=== PATIENT | female | born 1990 | race Two or more races ===

== ENCOUNTER 2019-02-19 16:13 | Emergency (ER) | payer OTHER ==
[~2019-02-19] VITALS: Ht 162.6 cm; Wt 65.8 kg
--- NOTE | 2019-02-19 16:25 | NUR ---
PT BIB BOYFRIEND, C/O ABD PAIN SINCE THIS MORNING, CONSTIPATION, PT IS AAOX4, NOT IN RESPIRATORY DISTRESS, HOOKED TO MONITOR, KEPT RESTED AND COMFORTABLE, WILL CONTINUE TO MONITOR.
--- NOTE | 2019-02-19 16:30 | NUR ---
AT BEDSIDE FOR EVAL.
--- NOTE | 2019-02-19 16:40 | NUR ---
BOND CATH INSERTED, URINE SPECIMEN COLLECTED AND SENT TO LAB.
--- NOTE | 2019-02-19 16:44 | NUR ---
IV LINE ESTABLISHED, BLOOD DRAWNED AND SENT TO LAB.
[2019-02-19 16:49] LABS: MEAN CORPUSCULAR HGB CONC 35 g/dl (31.0-36.0)
[2019-02-19 16:50] LABS: APPEARANCE,URINE Clear (CLEAR); BILIRUBIN,URINE Negative (NEGATIVE); BLOOD, URINE Negative Ery/uL (NEGATIVE); COLOR,URINE Yellow (YELLOW); KETONES,URINE Negative (NEGATIVE); LEUKOCYTE ESTERASE ,URINE Negative (NEGATIVE); NITRITE, URINE Negative (NEGATIVE); PH,URINE 7.5 (5.0-8.0); PROTEIN,URINE Negative (NEGATIVE); UGLUCOSE Negative (NEGATIVE); UROBILINOGEN,URINE 0.2 EU/dL (0.2)
[2019-02-19] MEDS ORDERED: KETOROLAC TROMETHAMINE INJ 30 MG/ML VIAL ONE (16:53)
[2019-02-19] MEDS ORDERED: MAGNESIUM CITRATE 296 ML BOTTLE ONE (16:53)
[2019-02-19 16:55] LABS: CALCIUM, SERUM 8.8 mg/dL (8.5-10.1); CREATININE 0.9 mg/dL (0.6-1.3); POTASSIUM 3.6 mmol/L (3.5-5.1)
[2019-02-19 16:56] LABS: BASOPHILS % (AUTO) 0.3 % (0.0-2.0); EOSINOPHILS % (AUTO) 0.7 % (0.0-6.0); HEMATOCRIT 43 % (33-45); LYMPHOCYTES # (AUTO) 2.9 /CMM (0.8-4.8); LYMPHOCYTES % (AUTO) 41.1 % (20.0-44.0); MEAN CORPUSCULAR VOLUME 94 fL (82-100); MONOCYTES # (AUTO) 0.3 /CMM (0.1-1.30); MONOCYTES % (AUTO) 4.3 % (2.0-12.0); NEUTROPHILS # (AUTO) 3.7 /CMM (1.8-8.9); NEUTROPHILS % (AUTO) 53.6 % (43.0-81.0); PLATELET COUNT (AUTO) 340 /CMM (150-450); RED BLOOD CELL COUNT(AUTO) 4.55 MIL/uL (4.0-5.2)
--- NOTE | 2019-02-19 16:58 | NUR ---
PT WHEELED TO RADIOLOGY DEPT FOR XRAY.
[2019-02-19] MEDS ORDERED: KETOROLAC TROMETHAMINE INJ 30 MG/ML VIAL IV ONE (17:00)
[2019-02-19] MEDS ORDERED: MAGNESIUM CITRATE 296 ML BOTTLE PO ONE (17:00)
--- NOTE | 2019-02-19 19:47 | NUR ---
Patient discharged to home in stable condition. Written and verbal after care instructions given. Patient verbalizes understanding of instruction. IV removed. Catheter intact and site benign. Pressure and 4x4 applied to site. No bleeding noted.
[2019-02-19 19:48] VITALS: BP 120/66
== END 2019-02-19 19:49 | disposition home or self-care (01) ==
LOC: ER 16:13
DX: R33.9 Retention of urine, unspecified (principal); K59.00 Constipation, unspecified; Z98.890 Other specified postprocedural states
CPT/HCPCS: 36415; 51702; 74021; 80048; 81001; 84703; 85025; 96374; 99284; J1885; 81000-TC; J7030